=== PATIENT | male | born 1965 | race Caucasian/White ===

== ENCOUNTER 2018-03-05 08:25 | Emergency (ER) | payer OTHER ==
--- NOTE | 2018-03-05 08:43 | EDPHY ---
H & P Stated Complaint: left arm pain started 5 days ago, sent by cards Time Seen by Provider: 03/05/18 08:34 HPI/ROS: CHIEF COMPLAINT: Left forearm pain HISTORY OF PRESENT ILLNESS: The patient is a 52-year-old man who comes to the emergency department from the cardiology office complaining of left forearm achiness. He states that it is been present for 5 days. It has not been intermittent. It does not worsen with exertion or exercise. He became concerned because he had similar arm pain in 2013 when he was diagnosed with non ST elevation myocardial infarction and eventually had a single LAD stent placed. However at that time he also had other symptoms such as worsening pain with exertion as well as chest pain or shortness of breath. He does not have any of these symptoms this week. No fever. No paresthesias numbness or weakness. No neck pain. No recent trauma. No GI symptoms. No diaphoresis. He had appoint with Dr. Fields this morning who obtained an normal EKG and recommended he come to the ER for blood testing. He also had a pacemaker placed a year ago for what sounds like sick sinus syndrome. Severity: Moderate Modifying factors: None REVIEW OF SYSTEMS: Constitutional: denies: chills, fever, recent illness, recent injury EENTM: denies: blurred vision, double vision, nose congestion Respiratory: denies: cough, shortness of breath Cardiac: denies: chest pain, irregular heart rate, lightheadedness, palpitations Gastrointestinal/Abdominal: denies: abdominal pain, diarrhea, nausea, vomiting, blood streaked stools Genitourinary: denies: dysuria, frequency, hematuria, pain Musculoskeletal: See HPI Skin: denies: lesions, rash, jaundice, bruising Neurological: denies: headache, numbness, paresthesia, tingling, dizziness, weakness Hematologic/Lymphatic: denies: blood clots, easy bleeding, easy bruising Immunologic/allergic: denies: HIV/AIDS, transplant 10 systems reviewed and negative except as noted EXAM: GENERAL: Well-appearing, well-nourished and in no acute distress. HEAD: Atraumatic, normocephalic. EYES: Pupils equal round and reactive to light, extraocular movements intact, sclera anicteric, conjunctiva are normal. ENT: TMs normal, nares patent, oropharynx clear without exudates. Moist mucous membranes. NECK: Normal range of motion, supple without lymphadenopathy or JVD. LUNGS: Breath sounds clear to auscultation bilaterally and equal. No wheezes rales or rhonchi. HEART: Regular rate and rhythm without murmurs, rubs or gallops. ABDOMEN: Soft, nontender, normoactive bowel sounds. No guarding, no rebound. No masses appreciated. BACK: No CVA tenderness, no spinal tenderness, step-offs or deformities EXTREMITIES: Normal range of motion, no pitting or edema. No clubbing or cyanosis. NEUROLOGICAL: Cranial nerves II through XII grossly intact. Normal speech, normal gait. 5/5 strength, normal movement in all extremities, normal sensation , normal reflexes PSYCH: Normal mood, normal affect. SKIN: Warm, dry, normal turgor, no visible rashes or lesions. Source: Patient Exam Limitations: No limitations - Personal History Current Tetanus Diphtheria and Acellular Pertussis (TDAP): Yes Tetanus Vaccine Date: within 10 yrs - Medical/Surgical History Hx Asthma: No Hx Chronic Respiratory Disease: No Hx Diabetes: No Hx Cardiac Disease: Yes Hx Renal Disease: No Hx Cirrhosis: No Hx Alcoholism: No Hx HIV/AIDS: No Hx Splenectomy or Spleen Trauma: No Other PMH: [place] 2014 stents x1, pacemaker/defib, back surg - Family History Significant Family History: No pertinent family hx - Social History Smoking Status: Never smoked Alcohol Use: Sober Drug Use: None Constitutional: Initial Vital Signs Temperature (C) 36.4 C 03/05/18 08:29 Heart Rate 59 L 03/05/18 08:29 Respiratory Rate 18 03/05/18 08:29 Blood Pressure 149/72 H 03/05/18 08:29 O2 Sat (%) 96 03/05/18 08:29 O2 Delivery Mode Room Air Allergies/Adverse Reactions: No Known Allergies Allergy (Unverified 03/05/18 08:28) Home Medications: Medication Instructions Recorded Albuterol [Proventil Inhaler HFA 2 puffs IH Q4 PRN 09/09/13 (*)] Atorvastatin Calcium [Lipitor 80 80 mg PO DAILY 09/09/13 mg] Multivitamins [Multivitamin (*)] 1 each PO DAILY 09/09/13 [place]-3 Fatty Acids [Fish Oil 1000 2,000 mg PO DAILY 09/09/13 mg (*)] Aspirin [Aspirin 325 mg (OTC)] 325 mg PO DAILY #30 tab 09/11/13 Medical Decision Making - Diagnostics EKG Interpretation: An EKG obtained and was read and documented in trace view. Please see trace view for full reading and report. Sinus rhythm, no acute ischemic changes Imaging: Discussed imaging studies w/ call center representative Radiologist ED Course/Re-evaluation: 9:04 a.m. the patient's lab work and x-ray are reassuring. His troponin is negative in the setting of 5 days worth of consistent symptoms. He states that he feels relieved. He declines further observation or repeat testing. Dr. Fields did suggest to him that they will schedule a stress test if his lab work is negative. We have paged Dr. Fields is office to schedule a stress test. Differential Diagnosis: Partial list of the Differential diagnosis considered include but were not limited to; left forearm pain, radiculopathy, contusion, muscle strain and although unlikely based on the history and physical exam, I also considered acute coronary disease, infection, DVT. I discussed these differential diagnoses and the plan with the patient as well as the usual and expected course. The patient understands that the diagnosis is provisional and that in medicine we are not always correct and that further workup is often warranted. Usual and customary warnings were given. All of the patient's questions were answered. The patient was instructed to return to the emergency department should the symptoms at all worsen or return, otherwise to followup with the physician as we discussed. - Data Points Point of Care Test Results: CBC CBC Collection Date 03/05/18 CBC Collection Time 08:45 WBC 4.8 RBC 5.12 HGB 14.6 HCT 43.2 PLT 196 Neut # 2.9 Neut 60.5 LYMPH # 1.2 LYMPH 25.8 Other WBC # 0.7 Other WBC 13.7 MCV 84.4 Chemistry 03/05/18 03/05/18 08:42 08:37 POC Sodium 145 mEq/L mEq/L (135-145) POC Potassium 4.0 mEq/L mEq/L (3.3-5.0) POC Chloride 104.0 mEq/L mEq/L (97-110) POC Total CO2 32 mEq/L H mEq/L (22-31) POC BUN 13 mg/dL mg/dL (7-23) POC Creatinine 0.9 mg/dL mg/dL (0.7-1.3) POC Glucose 76 mg/dL mg/dL (70-100) POC Calcium 9.5 mg/dL mg/dL (8.5-10.4) POC Troponin I 0.01 ng/mL ng/mL (0.00-0.08) Basic Metabolic Panel BMP Collection Date 03/05/18 BMP Collection Time 08:25 Departure - Departure Disposition: Home, Routine, Self-Care Clinical Impression: Left arm pain Condition: Fair Instructions: Arm Pain (ED) Referrals: Godfrey Fields MD [Medical Doctor] - As per Instructions
--- NOTE | 2018-03-05 08:45 | CPEKG ---
Test Reason : OPEN Blood Pressure : / mmHG Vent. Rate : 056 BPM Atrial Rate : 055 BPM P-R Int : 172 ms QRS Dur : 100 ms QT Int : 423 ms P-R-T Axes : 023 -01 -05 degrees QTc Int : 409 ms Sinus rhythm Borderline T abnormalities, inferior leads Confirmed by Boris Onofre ([id number]), online content editor Jero Hill ([id number] on 03/05/2018 8:44:50 AM Referred By: Confirmed By:Boris Onofre
[2018-03-05 09:14] VITALS: BP 132/80
== END 2018-03-05 09:12 | disposition home or self-care (01) ==
LOC: CED 08:25
DX: M79.632 Pain in left forearm (principal); R07.9 Chest pain, unspecified; R06.09 Other forms of dyspnea; Z95.0 Presence of cardiac pacemaker; Z95.5 Presence of coronary angioplasty implant and graft
CPT/HCPCS: 71046-PO; 80048-PO; 84484-PO